=== PATIENT | male | born 2000 | race Hispanic/Latino ===

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

== ENCOUNTER 2019-06-17 21:51 | Emergency (ER) | payer BC, MEDICAID, OTHER | END 2019-06-17 22:36 | disposition home or self-care (01) | LOC: EDH 21:51 | DX: K64.8 Other hemorrhoids (principal) ==